=== PATIENT | male | born 1985 | race Caucasian/White ===

== ENCOUNTER 2021-01-12 15:21 | Outpatient (CLI) | payer OTHER | END 2021-01-12 15:22 | disposition home or self-care (01) | LOC: CSHCT 15:21 | PROVIDERS: ATTEND Surgery | DX: M50.30 Other cervical disc degeneration, unspecified cervical region (principal); M50.20 Other cervical disc displacement, unspecified cervical region; M48.02 Spinal stenosis, cervical region; M47.812 Spondylosis without myelopathy or radiculopathy, cervical region | CPT/HCPCS: 72125; 72141 ==